=== PATIENT | female | born 1975 | race Caucasian/White ===

== ENCOUNTER → 2020-07-31 | Outpatient (CLI) | payer OTHER ==
[~2020-07-31] MED LIST: ECOTRIN81 MG PO; ESTRACE2 MG PO; FISH OIL 1,0001 EAC4 PO; LOPRESSOR 25 MG25 MG PO; LYRICA300 MG PO; NITROSTAT0.4 MG SL; PAMELOR25 MG PO; PERCOCET 10-321 EACH PO; SYNTHROID75 MCG PO; ZOCOR20 MG PO
== END ==
LOC: HEART 5 15:24
DX: R06.02 Shortness of breath (principal); I51.7 Cardiomegaly
CPT/HCPCS: 93306